=== PATIENT | male | born 1930 | race Caucasian/White ===

== ENCOUNTER → 2016-10-14 | Outpatient (CLI) | payer MEDICARE, OTHER ==
[~2016-10-14] MED LIST: ASPI-621 PO; ATOR10TA PO; CLOP75TA PO; LEVO50TA5 PO; LINA5TAB PO; LISI-167 PO; METO25TA35 PO; MV,1TABL3 PO; TAMS-11 PO; lisinopril PO; metoprolol PO
== END | disposition home or self-care (01) ==
LOC: CVU 08:53
PROVIDERS: ATTEND Internal Medicine Cardiovascular Disease
DX: I08.2 Rheumatic disorders of both aortic and tricuspid valves (principal); I71.4 Abdominal aortic aneurysm, without rupture; G12.9 Spinal muscular atrophy, unspecified; I70.0 Atherosclerosis of aorta; I37.1 Nonrheumatic pulmonary valve insufficiency; E65 Localized adiposity; Z86.79 Personal history of other diseases of the circulatory system; Z95.5 Presence of coronary angioplasty implant and graft; Z95.0 Presence of cardiac pacemaker
CPT/HCPCS: 93306; 93978

== ENCOUNTER 2017-10-31 20:50 | Emergency (ER) | payer MEDICARE, OTHER ==
[~2017-10-31] VITALS: Ht 175.3 cm; Wt 75.8 kg
[2017-10-31 20:53] VITALS: BP 142/85
== END 2017-10-31 22:14 | disposition home or self-care (01) ==
LOC: ED 22:10
DX: G24.3 Spasmodic torticollis (principal); M54.2 Cervicalgia; Z86.73 Personal history of transient ischemic attack (TIA), and cerebral infarction without residual deficits
CPT/HCPCS: 99283

== ENCOUNTER → 2017-12-14 | Outpatient (CLI) | payer MEDICARE, OTHER | END | disposition home or self-care (01) | LOC: CFH 10:36 | PROVIDERS: ATTEND Internal Medicine Cardiovascular Disease | DX: I08.3 Combined rheumatic disorders of mitral, aortic and tricuspid valves (principal); E78.5 Hyperlipidemia, unspecified; Z86.73 Personal history of transient ischemic attack (TIA), and cerebral infarction without residual deficits; Z95.0 Presence of cardiac pacemaker | CPT/HCPCS: 93306 ==

== ENCOUNTER → 2018-08-01 | Outpatient (CLI) | payer MEDICARE, OTHER ==
[~2018-08-01] MED LIST changes: -ASPI-621 PO; +ASPI81TA45 PO
== END | disposition home or self-care (01) ==
LOC: CVU 07:01
PROVIDERS: ATTEND Internal Medicine Cardiovascular Disease
DX: I71.4 Abdominal aortic aneurysm, without rupture (principal); I25.10 Atherosclerotic heart disease of native coronary artery without angina pectoris; E78.5 Hyperlipidemia, unspecified
CPT/HCPCS: 93978